=== PATIENT | male | born 1980 | race Caucasian/White ===

== ENCOUNTER 2024-09-09 10:03 | Emergency (ER) | payer OTHER, SELFPAY ==
[2024-09-09 10:11] VITALS: BP 123/86; PULSE 80; RESP 18; TEMP 36.7; O2SAT 100; BMI 32.5
--- NOTE | 2024-09-09 10:18 | CTR_ITS ---
PROCEDURE INFORMATION: Exam: CT Chest With Contrast; Diagnostic Exam date and time: 09/09/2024 10:52 AM Age: 43 years old Clinical indication: Injury or trauma; Fall; Ruq; Blunt trauma (contusions or hematomas); Injury details: Fell off ladder hitting RT side; Prior surgery; Surgery date: 6+ months; Surgery type: Gb, appy TECHNIQUE: Imaging protocol: Diagnostic computed tomography of the chest with contrast. Radiation optimization: All CT scans at this facility use at least one of these dose optimization techniques: automated exposure control; mA and/or kV adjustment per patient size (includes targeted exams where dose is matched to clinical indication); or iterative reconstruction. Contrast material: OMNI 350; Contrast volume: 100 ml; Contrast route: INTRAVENOUS (IV); COMPARISON: None RADIATION DOSE METRICS: Total DLP (mGy-cm): 1380.76 FINDINGS: Lungs: No focal lung consolidation. Pleural spaces: No pneumothorax. No pleural effusion. Heart: No cardiomegaly. No pericardial effusion. Coronary arteries: No coronary artery calcifications. Mediastinal space: The visualized trachea and esophagus are unremarkable in appearance. Lymph nodes: No mediastinal or hilar lymphadenopathy. No axillary lymphadenopathy. Vasculature: No thoracic aortic aneurysm or dissection. Bones/joints: No acute bony abnormality. Nonspecific 0.7 cm sclerotic focus involving the left 4th rib laterally. Soft tissues: Subcutaneous soft tissues are unremarkable. PROCEDURE INFORMATION: Exam: CT Abdomen And Pelvis With Contrast Exam date and time: 09/09/2024 10:52 AM Age: 43 years old Clinical indication: Injury or trauma; Fall; Ruq; Blunt trauma (contusions or hematomas); Injury details: Fell off ladder hitting RT side; Prior surgery; Surgery date: 6+ months; Surgery type: Gb, appy TECHNIQUE: Imaging protocol: Computed tomography of the abdomen and pelvis with contrast. Radiation optimization: All CT scans at this facility use at least one of these dose optimization techniques: automated exposure control; mA and/or kV adjustment per patient size (includes targeted exams where dose is matched to clinical indication); or iterative reconstruction. Contrast material: OMNI 350; Contrast volume: 100 ml; Contrast route: INTRAVENOUS (IV); COMPARISON: No relevant prior studies available. RADIATION DOSE METRICS: Total DLP (mGy-cm): 1380.76 FINDINGS: Liver: The liver is unremarkable in appearance. Gallbladder and biliary ducts: Status post cholecystectomy. Pancreas: Pancreas is unremarkable in appearance. No ductal dilation. Spleen: The spleen is normal in size and contour. Adrenal glands: Adrenal glands are unremarkable in appearance. Kidneys and ureters: Kidneys and ureters are unremarkable in appearance. No hydronephrosis. No radio-opaque stone. Stomach and bowel: Unremarkable. No obstruction. No mucosal thickening. Appendix: Appendix is not seen, however, there are no secondary signs of appendicitis. Intraperitoneal space: No ascites. Vasculature: Unremarkable. No abdominal aortic aneurysm. Lymph nodes: No abdominal or pelvic lymphadenopathy. Urinary bladder: Nonspecific bladder wall thickening. Cystitis cannot be excluded. Reproductive: Prostate measures 3.3 cm. Bones/joints: No acute bony abnormality. Soft tissues: Umbilical hernia containing fat. CT/CT chest abdpel w/*[id number] IMPRESSION: 1. No focal lung consolidation. 2. No thoracic aortic aneurysm or dissection. 3. No acute bony abnormality. If symptoms persist, consider repeat imaging in 5-7 days. 4. Nonspecific 0.7 cm sclerotic focus involving the left 4th rib laterally. Recommend clinical correlation follow-up imaging as clinically warranted. IMPRESSION: Nonspecific bladder wall thickening. Cystitis cannot be excluded. Otherwise, no acute abdominal or pelvic pathology. Recommend clinical correlation.
--- NOTE | 2024-09-09 10:18 | CTR_ITS ---
PROCEDURE INFORMATION: Exam: CT Cervical Spine Without Contrast Exam date and time: 09/09/2024 10:48 AM Age: 43 years old Clinical indication: Injury or trauma; Fall; Blunt trauma; Injury details: Fell of ladder hitting RT side TECHNIQUE: Imaging protocol: Computed tomography of the cervical spine without contrast. Radiation optimization: All CT scans at this facility use at least one of these dose optimization techniques: automated exposure control; mA and/or kV adjustment per patient size (includes targeted exams where dose is matched to clinical indication); or iterative reconstruction. COMPARISON: No relevant prior studies available. RADIATION DOSE METRICS: Total DLP (mGy-cm): 202.17 FINDINGS: Bones/joints: The cervical vertebral body heights are maintained. Normal alignment. C2-C3: No significant disc bulge or herniation. No severe spinal canal stenosis. No significant neuroforaminal narrowing. C3-C4: No significant disc bulge or herniation. No severe spinal canal stenosis. No significant neuroforaminal narrowing. C4-C5: No significant disc bulge or herniation. No severe spinal canal stenosis. No significant neuroforaminal narrowing. C5-C6: No significant disc bulge or herniation. No severe spinal canal stenosis. No significant neuroforaminal narrowing. C6-C7: No significant disc bulge or herniation. No severe spinal canal stenosis. No significant neuroforaminal narrowing. C7-T1: No significant disc bulge or herniation. No severe spinal canal stenosis. No significant neuroforaminal narrowing. Lungs: Lung apices are normal. Soft tissues: Asymmetric appearance of the piriform sinuses with relative effacement of the left side. Underlying mucosal lesion cannot be excluded. Recommend correlation with direct visualization. CT/CT cervical spin wo con* [id number] IMPRESSION: 1. No acute bony abnormality. If symptoms persist, consider further evaluation with MRI, if MRI is clinically safe to obtain. 2. Asymmetric appearance of the piriform sinuses with relative effacement of the left side. Underlying mucosal lesion cannot be excluded. Recommend correlation with direct visualization.
[2024-09-09 10:41] VITALS: RESP 18; O2SAT 98
[2024-09-09] MEDS: ondansetron 2 mg/ML SDV 2 mL 4 MG IVP (10:41)
[2024-09-09] MEDS: morphine 4 mg/mL SDV 1 mL IVP ×2 (10:41→12:33)
[2024-09-09] MEDS: ketorolac 30 mg/mL INJ IVP (10:42)
[2024-09-09] MEDS: iohexol 350 mg/mL 500 mL Btl (per mL) IV (10:50)
[2024-09-09 11:00] LABS: Basophils # 0.1 10^3/uL (0.0-0.1); Basophils % 0.9 %; Eosinophils # 0.1 10^3/uL (0.0-0.8); Eosinophils % 1.6 %; Hematocrit 44.7 % (37-53); Lymphocytes # 1.6 10^3/uL (0.8-4.8); Lymphocytes % 26.7 %; Mean Corpuscular Hemoglobin 32.1 pg (27-33); Mean Corpuscular Volume 94.5 fl (82-101); Mean Platelet Volume 9.8 fL (7.4-10.4); Monocytes # 0.6 10^3/uL (0.2-0.9); Monocytes % 9.7 %; Neutrophils # 3.53 10^3/uL (1.8-7.7); Neutrophils % 60.8 %; Nucleated Red Blood Cells % 0 %; Platelet Count 237 10^3/cmm (157-399); Red Blood Count 4.73 10^6/uL (3.85-5.65)
--- NOTE | 2024-09-09 11:11 | W.ED.FALL ---
HPI - Fall General: Chief Complaint: Fall Stated Complaint: fall (10 ft+) Time Seen by Provider: 09/09/24 10:18 History of Present Illness: 43-year-old male presents to the emergency room after falling from ladder approximately 10 feet landed on his right lateral chest wall when he hit the ground. He landed on the ladder that had fallen off of. He denies striking his head there is no loss consciousness he has severe pain along the right chest wall denies other injuries. Associated symptoms-after fall: Denies abdominal pain, chest pain or neck pain Related Data Home Medications Medication Instructions Recorded Confirmed lisinopril 10 1 tab PO DAILY 09/09/24 09/09/24 mg-hydrochlorothiazide 12.5 mg tablet metoprolol succinate 50 mg 50 mg PO DAILY 09/09/24 09/09/24 tablet,extended release 24 hr Previous Rx's Medication Instructions Recorded diclofenac sodium 75 mg 75 mg PO Q12H PRN pain #20 tabs 09/09/24 tablet,delayed release hydrocodone 5 mg-acetaminophen 325 1 tab PO Q6H PRN pain #20 tabs 09/09/24 mg tablet tizanidine 4 mg tablet 4 mg PO Q6H PRN muscle spasticity 09/09/24 #20 tabs Allergies Allergy/AdvReac Type Severity Reaction Status Date / Time sulfamethoxazole Allergy ALGY-Rash Verified 09/09/24 10:15 [From Bactrim] tramadol Allergy ALGY-Rash Verified 09/09/24 10:15 trimethoprim [From Bactrim] Allergy ALGY-Rash Verified 09/09/24 10:15 Review of Systems Const: Denies: fever(s) or chills Card: Denies: chest pain Resp: Denies: dyspnea GI: Denies: abdominal pain : Denies: dysuria, urinary frequency or urinary urgency Musc: Denies: neck pain or back pain Skin/Breast: Denies: rash Physical Exam Const: COMMON NORMALS: no acute distress GENERAL APPEARANCE: cooperative and comfortable ORIENTATION/CONSCIOUSNESS: Yes awake, Yes oriented to person, Yes oriented to place and Yes oriented to time HENMT: COMMON NORMALS: normocephalic, atraumatic and hearing grossly normal bilaterally HEAD & SCALP: normocephalic and atraumatic Resp: COMMON NORMALS: normal respiratory effort, No retractions, No use of accessory muscles and clear to auscultation bilaterally AUSCULTATION: clear to auscultation bilaterally Cardio: COMMON NORMALS: regular rate, regular rhythm and No murmurs present (Cardio) RATE: regular rate RHYTHM: regular rhythm GI: COMMON NORMALS: Soft to palpation and No hepatosplenomegaly present AUSCULTATION: Yes normoactive bowel sounds PALPATION: Yes Soft to palpation, No Tenderness to palpation present (GI), No Guarding due to palpation present (GI) and Yes No hepatosplenomegaly present Extremity: COMMON NORMALS: normal to inspection, capillary refill normal, no clubbing, cyanosis or edema, no calf tenderness and no pedal edema Neuro: SENSORIUM/ORIENTATION: Yes oriented to person, Yes oriented to place and Yes oriented to time Skin: COMMON NORMALS: no rashes or lesions noted GENERAL SKIN EXAM: no rashes or lesions noted Course Vital Signs: Vital signs: Vital Signs Temperature 98.1 F 09/09/24 10:11 Pulse Rate 68 09/09/24 13:04 Respiratory Rate 16 09/09/24 13:04 Blood Pressure 122/78 09/09/24 13:04 Pulse Oximetry 99 09/09/24 13:04 Oxygen Delivery Me thod Room Air 09/09/24 12:37 MDM - Fall Medical Decision Making Exam was unremarkable extreme tenderness along the right anterior axillary line. Patient tolerated exam well CT does not show any acute fractures pulmonary contusion or pneumothorax. Treat for soft tissue injury given tizanidine diclofenac hydrocodone can use ice on the area follow-up with primary care if has any difficulty Medical Records I reviewed the patient's medical records. Lab Data I reviewed the patient's lab results. 09/09/24 10:39 09/09/24 10:39 Radiology Impressions Cervical Spine CT 09/09/24 10:18 IMPRESSION: 1. No acute bony abnormality. If symptoms persist, consider further evaluation with MRI, if MRI is clinically safe to obtain. 2. Asymmetric appearance of the piriform sinuses with relative effacement of the left side. Underlying mucosal lesion cannot be excluded. Recommend correlation with direct visualization. Chest/Abdomen/Pelvis CT 09/09/24 10:18 IMPRESSION: 1. No focal lung consolidation. 2. No thoracic aortic aneurysm or dissection. 3. No acute bony abnormality. If symptoms persist, consider repeat imaging in 5-7 days. 4. Nonspecific 0.7 cm sclerotic focus involving the left 4th rib laterally. Recommend clinical correlation follow-up imaging as clinically warranted. IMPRESSION: Nonspecific bladder wall thickening. Cystitis cannot be excluded. Otherwise, no acute abdominal or pelvic pathology. Recommend clinical correlation. Laboratory Results WBC 5.80 10^3/uL (3.29-11.43) 09/09/24 10:39 RBC 4.73 10^6/uL (3.85-5.65) 09/09/24 10:39 Hgb 15.20 g/dL (11.27-16.99) 09/09/24 10:39 Hct 44.7 % (37-53) 09/09/24 10:39 MCV 94.5 fl (82-101) 09/09/24 10:39 MCH 32.1 pg (27-33) 09/09/24 10:39 MCHC 34.0 g/dL (30-55) 09/09/24 10:39 RDW 14.0 % (12.1-15.1) 09/09/24 10:39 Plt Count 237 10^3/cmm (157-399) 09/09/24 10:39 MPV 9.8 fL (7.4-10.4) 09/09/24 10:39 Neut % (Auto) 60.8 % 09/09/24 10:39 Lymph % (Auto) 26.7 % 09/09/24 10:39 [place] % (Auto) 9.7 % 09/09/24 10:39 Eos % (Auto) 1.6 % 09/09/24 10:39 Baso % (Auto) 0.9 % 09/09/24 10:39 Neut # (Auto) 3.53 10^3/uL (1.8-7.7) 09/09/24 10:39 Lymph # (Auto) 1.6 10^3/uL (0.8-4.8) 09/09/24 10:39 [place] # (Auto) 0.6 10^3/uL (0.2-0.9) 09/09/24 10:39 Eos # (Auto) 0.1 10^3/uL (0.0-0.8) 09/09/24 10:39 Baso # (Auto) 0.1 10^3/uL (0.0-0.1) 09/09/24 10:39 Nucleated RBC % (auto) 0 % 09/09/24 10:39 Nucleated RBCs # 0.0 /100WBC 09/09/24 10:39 Sodium 137 mmol/L (136-145) 09/09/24 10:39 Potassium 4.8 mmol/L (3.5-5.1) 09/09/24 10:39 Chloride 102 mmol/L (98-107) 09/09/24 10:39 Carbon Dioxide 25 mmol/L (22-29) 09/09/24 10:39 Anion Gap 14.8 (5-19) 09/09/24 10:39 BUN 16 mg/dL (6-20) 09/09/24 10:39 Creatinine 1.2 mg/dL (0.7-1.2) 09/09/24 10:39 GFR Calculation 66.7 mL/min (90-130) L 09/09/24 10:39 Glucose 108 mg/dL (65-115) 09/09/24 10:39 Calculated Osmolality 286 mOsm/kg (285-295) 09/09/24 10:39 Calcium 9.3 mg/dL (8.5-10.5) 09/09/24 10:39 Total Bilirubin 0.5 mg/dL (0.15-1.2) 09/09/24 10:39 AST 30 U/L (0-40) 09/09/24 10:39 ALT 44 U/L (0-41) H 09/09/24 10:39 Alkaline Phosphatase 71 U/L (40-130) 09/09/24 10:39 Total Protein 6.6 g/dL (6.6-8.7) 09/09/24 10:39 Albumin 4.4 g/dL (3.5-5.2) 09/09/24 10:39 Globulin 2.2 g/dL (1.3-4.6) 09/09/24 10:39 All radiology interpretation(s) finalized by discharge Discharge Plan Discharge Patient Disposition: Home Clinical Impression: Contusion of rib on right side, Fall on and from ladder causing accidental injury Condition: Stable Prescriptions: New tizanidine 4 mg tablet 4 mg PO Q6H PRN (Reason: muscle spasticity) Qty: 20 0RF Rx Instructions: do not exceed 3 doses per 24 hrs hydrocodone-acetaminophen 5-325 mg tablet 1 tab PO Q6H PRN (Reason: pain) Qty: 20 0RF diclofenac sodium 75 mg tablet,delayed release (DR/EC) 75 mg PO Q12H PRN (Reason: pain) Qty: 20 0RF No Action metoprolol succinate 50 mg tablet extended release 24 hr 50 mg PO DAILY lisinopril-hydrochlorothiazide 10-12.5 mg tablet 1 tab PO DAILY Discharge Orders: Discharge ED (Routine); Ordered 09/09/24 Ordered By: Aayush Groves Patient Instructions: Opioid Safety, Pain Management Activity Restrictions/Additional Instructions: Thank you for choosing [facility] for your healthcare needs today. It is very important that you follow up as instructed or that you return to the Emergency Department should you have concerns or if your condition changes or worsens in any way. You were seen after falling from a ladder. CT chest abdomen pelvis did not show any significant injury. You likely bruised the ribs on the right side which is causing a significant amount of pain. Given pain medicines in the ER and will discharge home with diclofenac hydrocodone and tizanidine to use as needed. Follow-up with your primary care doctor if you have worsening problems return. While you should remain somewhat active avoid heavy strenuous activities as they will exacerbate your pain Coding Level of Care Code ED Overhead Foreman for Marcia Hollingsworth
[2024-09-09 11:23] LABS: Alanine Aminotransferase 44 U/L (0-41); Albumin Level 4.4 g/dL (3.5-5.2); Alkaline Phosphatase 71 U/L (40-130); Anion Gap 14.8 (5-19); Aspartate Amino Transferase 30 U/L (0-40); Blood Urea Nitrogen 16 mg/dL (6-20); Calcium 9.3 mg/dL (8.5-10.5); Carbon Dioxide 25 mmol/L (22-29); Chloride 102 mmol/L (98-107); Creatinine Clr Calc Pharmacy 94.3433; Globulin 2.2 g/dL (1.3-4.6); Glomerular Filtration Rate 66.7 mL/min (90-130); Glucose 108 mg/dL (65-115); Osmolality Calculated 286 mOsm/kg (285-295); Potassium 4.8 mmol/L (3.5-5.1); Sodium 137 mmol/L (136-145); Total Bilirubin 0.5 mg/dL (0.15-1.2); Total Protein 6.6 g/dL (6.6-8.7)
[2024-09-09 12:33] VITALS: RESP 18; O2SAT 100
[2024-09-09 12:37] VITALS: BP 107/76; PULSE 69; RESP 18; O2SAT 100
[2024-09-09 13:04] VITALS: BP 122/78; PULSE 68; RESP 16; O2SAT 99
== END 2024-09-09 13:03 | disposition home or self-care (01) ==
PROVIDERS: Emergency Provider Family Medicine
DX: S20.211A Contusion of right front wall of thorax, initial encounter (principal); W11.XXXA Fall on and from ladder, initial encounter
CPT/HCPCS: 71260; 72125; 74177; 80053; 85025; 96374; 96375; 96376; 99285; J1885; J2270; J2405